=== PATIENT | male | born 1995 | race Caucasian/White ===

== ENCOUNTER 2017-10-10 21:28 | Emergency (ER) | payer BC ==
--- NOTE | 2017-10-10 21:47 | Emergency Department Record ---
History of Present Illness - General Chief Complaint: Depression Stated Complaint: DEPRESSION Time Seen by Provider: 10/10/17 21:31 Source: Patient Mode of Arrival: Ambulatory Limitations: No limitations Travel/Exposure to [place] Within 21 Days of Symptoms: No - History of Present Illness Initial Comments: 22 yo male presents to ED for evaluation of depression symptoms x 1 month. Patient denies a specific initiating event but does report that he quir his job 2 weeks ago which resulted in worsening depression symptoms. Patient denies previous history of depression, and denies any SI/HI on examination with his mother present at the bedside. Patient does report that he has a PCP who he has not contacted regarding his symptoms, and he reports that he is not interested in therapy at this time. MD Complaint: Feels depressed Onset/Timin -: Month(s) Associated Psychiatric Symptoms: Depression, Racing thoughts History of same: No Quality: Constant Improves With: None Worsens With: None Context: Unsure Associated Symptoms: Insomnia Treatments Prior to Arrival: None - [place] Coma Scale Eye Response: (4) Open spontaneously Motor Response: (6) Obeys commands Verbal Response: (5) Oriented [place] Total: 15 - Related Data Allergies Allergy/AdvReac Type Severity Reaction Status Date / Time amoxicillin [Amoxicillin] Allergy Unknown SWELLING Unverified 10/06/15 08:33 (GENERAL) Review of Systems Constitutional: Denies: Chills, Fever, Malaise, Night sweats Eyes: Denies: Eye discharge, Eye pain ENT: Denies: Congestion, Ear pain, Epistaxis Respiratory: Denies: Cough, Dyspnea Cardiovascular: Denies: Chest pain, Dyspnea on exertion Endocrine: Denies: Fatigue, Heat or cold intolerance Gastrointestinal: Denies: Abdominal pain, Nausea, Vomiting Genitourinary: Denies: Incontinence, Retention Musculoskeletal: Denies: Arthralgia, Back pain, Gout, Joint swelling Skin: Denies: Bruising, Change in color Neurological: Denies: Abnormal gait, Confusion, Headache, Seizure Psychiatric: Reports: Depression. Denies: Anxiety, Homicidal thoughts, Suicidal thoughts Hematological/Lymphatic: Denies: Anemia, Blood Clots Past Medical History - SOCIAL HISTORY Smoking Status: Never smoker Alcohol Use: None Drug Use: None - RESPIRATORY Hx Respiratory Disorders: No - CARDIOVASCULAR Hx Cardio Disorders: No - NEURO Hx Neuro Disorders: No - GI Hx GI Disorders: No - Hx Genitourinary Disorders: No - ENDOCRINE Hx Endocrine Disorders: No - MUSCULOSKELETAL Hx Musculoskeletal Disorders: No - PSYCH Hx Psych Problems: No - HEMATOLOGY/ONCOLOGY Hx Hematology/Oncology Disorders: No Family Medical History Any Significant Family History?: Yes Hx Alcohol Use: Brother/Sister Hx Diabetes: Mother *Diabetes Comment: Aunt Hx Heart Disease: Father, Grandparents Physical Exam - General General Appearance: Alert, Oriented x3, Cooperative, Moderate distress Limitations: No limitations - Head Head exam: Atraumatic, Normocephalic, Normal inspection Head exam detail: negative: Abrasion, Contusion, Adam's sign, General tenderness, Hematoma, Laceration - Eye Eye exam: Conjunctival injection. negative: Periorbital swelling, Periorbital tenderness, Scleral icterus - ENT Ear exam: negative: Auricular hematoma, Auricular trauma Nasal Exam: negative: Active bleeding, Discharge, Dried blood, Foreign body Mouth exam: negative: Drooling, Laceration, Muffled voice, Tongue elevation - Neck Neck exam: Normal inspection. negative: Meningismus, Tenderness - Respiratory Respiratory exam: Normal lung sounds bilaterally. negative: Rales, Respiratory distress, Rhonchi, Stridor - Cardiovascular Cardiovascular Exam: Regular rate, Normal rhythm, Normal heart sounds - GI/Abdominal GI/Abdominal exam: Soft. negative: Rebound, Rigid, Tenderness - Rectal Rectal exam: Deferred - exam: Deferred - Extremities Extremities exam: Normal inspection. negative: Calf tenderness, Pedal edema, Tenderness - Back Back exam: Denies: CVA tenderness (R), CVA tenderness (L) - Neurological Neurological exam: Alert, Normal gait, Oriented X3 - Psychiatric Psychiatric exam: Normal affect, Normal mood - Skin Skin exam: Normal color. negative: Abrasion Type of lesion: negative: abrasion Course Vital Signs 10/10/17 21:33 Temperature 98.7 F Pulse Rate [ 76 Pulse Ox Probe] Respiratory 20 Rate Blood Pressure 144/99 [Left Arm] Pulse Ox 98 - Reevaluation(s) Reevaluation #1: 10/10/17 21:51 Patient was seen and examined, reports symptoms of depression for 1 month. Patient and denies SI/HI, reports that he has been having intermittent visual hallucinations due to lack of sleep per patient. I did explain the limitations of initiating medication for depression as frequent monitoring is required. Patient does have a PCP that he was instructed to fall in the morning for a follow-up appointment. Patient is alert , oriented, and answers all questions appropriately on my examination. There is no clinical evidence for acute sacha on examination or an ability to care for himself. Patient and his family member verbalize understanding of all instructions. Patient appears stable for discharge at this time. I did discuss placing a consult for behavioral health here at [facility], patient declined stating that he was not interested in therapy at this time. Disposition Disposition: Discharge Clinical Impression: Depression (emotion) Qualifiers: Depression Type: unspecified Qualified Code(s): F32.9 - Major depressive disorder, single episode, unspecified Disposition: Home, Self-Care Condition: (2) Stable Instructions: Depression (ED) Additional Instructions: Return to ED if your symptoms worsen or if you have any concerns. Call Dr. Estrada's office in the morning for an appointment in 1-3 days as directed. Forms: Patient Portal Access Time of Disposition: 21:47 Quality - Quality Measures Quality Measures: N/A - Blood Pressure Screening Does Patient Have Any of the Following: No Blood Pressure Classification: Hypertensive Reading Systolic Measurement: 144 Diastolic Measurement: 99 Screening for High Blood Pressure: < First Hypertensive BP, F/U Documented > [ G8950] First Hypertensive Follow-up Interventions: Referral to alternative/primary care provider.
== END 2017-10-10 21:53 | disposition home or self-care (01) ==
LOC: ER 21:28
DX: F32.9 Major depressive disorder, single episode, unspecified (principal)
CPT/HCPCS: 99282

== ENCOUNTER 2018-06-03 20:34 | Emergency (ER) | payer BC ==
[2018-06-03] MEDS ORDERED: METHYLPREDNISOLONE PF 125MG/VIAL IM ONE (20:53)
[2018-06-03] MEDS ORDERED: DIPHENHYDRAMINE HCL 50 MG/ML VIAL IM ONE (20:53)
--- NOTE | 2018-06-03 20:59 | Emergency Department Record ---
History of Present Illness - General Chief complaint: Rash Stated complaint: RASH ON BACK,NOT FEELING HIMSELF Time Seen by Provider: 06/03/18 20:48 Source: Patient Mode of Arrival: Ambulatory Limitations: No limitations - History of Present Illness Initial comments: pt laid on garage floor working on a car when he broke out in a rash on his back that itches. pt feels like he has something in his throat MD complaint: Insect bite/sting, Other (hives) Onset/Timin -: Hour(s) Hx Tetanus Toxoid Vaccination: Yes Year of Tetanus Vaccination: unknown Location: Back Associated symptoms: Itching Treatments Prior to Arrival: None - Related Data Home Medications Medication Instructions Recorded Confirmed Last Taken No Home Med [NO HOME MEDS] 06/03/18 06/03/18 Unknown Allergies Allergy/AdvReac Type Severity Reaction Status Date / Time amoxicillin [Amoxicillin] Allergy Unknown SWELLING Verified 06/03/18 20:38 (GENERAL) Travel Screening - Travel/Exposure Within Last 30 Days Have you traveled within the last 30 days?: No - Travel Symptoms Symptom Screening: None Review of Systems Reviewed: No additional complaints except as noted below Constitutional: Reports: As per HPI. Denies: Chills, Fever, Malaise, Night sweats, Weakness, Weight change Eyes: Reports: As per HPI. Denies: Eye discharge, Eye pain, Photophobia, Vision change ENT: Reports: As per HPI. Denies: Congestion, Dental pain, Ear pain, Epistaxis , Hearing loss, Throat pain Respiratory: Reports: As per HPI. Denies: Cough, Dyspnea, Hemoptysis, Stridor, Wheezes Cardiovascular: Reports: As per HPI. Denies: Arrhythmia, Chest pain, Dyspnea on exertion, Edema, Murmurs, Orthopnea, Palpitations, Paroxysmal nocturnal dyspnea, Rheumatic Fever, Syncope Endocrine: Reports: As per HPI. Denies: Fatigue, Heat or cold intolerance, Polydipsia, Polyuria Gastrointestinal: Reports: As per HPI. Denies: Abdominal pain, Constipation, Diarrhea, Hematemesis, Hematochezia, Melena, Nausea, Vomiting Genitourinary: Reports: As per HPI. Denies: Dysuria, Frequency, Hematuria, Incontinence, Retention, Testicular pain, Testicular mass, Urgency Musculoskeletal: Reports: As per HPI. Denies: Arthralgia, Back pain, Gout, Joint swelling, Myalgia, Neck pain Skin: Reports: As per HPI. Denies: Bruising, Change in color, Change in hair/ nails, Lesions, Pruritus, Rash Neurological: Reports: As per HPI. Denies: Abnormal gait, Confusion, Headache, Numbness, Paresthesias, Seizure, Tingling, Tremors, Vertigo, Weakness Psychiatric: Reports: As per HPI. Denies: Anxiety, Auditory hallucinations, Depression, Homicidal thoughts, Suicidal thoughts, Visual hallucinations Hematological/Lymphatic: Reports: As per HPI. Denies: Anemia, Blood Clots, Easy bleeding, Easy bruising, Swollen glands Past Medical History - SOCIAL HISTORY Smoking Status: Never smoker - RESPIRATORY Hx Respiratory Disorders: No - CARDIOVASCULAR Hx Cardio Disorders: No - NEURO Hx Neuro Disorders: No - GI Hx GI Disorders: No - Hx Genitourinary Disorders: No - ENDOCRINE Hx Endocrine Disorders: No - MUSCULOSKELETAL Hx Musculoskeletal Disorders: No - PSYCH Hx Psych Problems: No - HEMATOLOGY/ONCOLOGY Hx Hematology/Oncology Disorders: No Family Medical History Any Significant Family History?: Yes Hx Alcohol Use: Brother/Sister Hx Diabetes: Mother *Diabetes Comment: Aunt Hx Heart Disease: Father, Grandparents Physical Exam - General General Appearance: Alert, Oriented x3, Cooperative, Mild distress - Head Head exam: Normal inspection - Eye Eye exam: Normal appearance, PERRL, EOMI Pupils: Normal accommodation - ENT ENT exam: Normal exam, Mucous membranes moist, Normal external ear exam, Normal orophraynx Ear exam: Normal external inspection. negative: External canal tenderness Nasal Exam: Normal inspection. negative: Discharge, Sinus tenderness Mouth exam: Normal external inspection, Tongue normal Teeth exam: Normal inspection. negative: Dental caries Throat exam: Normal inspection, Other (no swelling). negative: Tonsillar erythema, Tonsillar exudate - Neck Neck exam: Normal inspection, Full ROM. negative: Tenderness - Respiratory Respiratory exam: Normal lung sounds bilaterally. negative: Respiratory distress - Cardiovascular Cardiovascular Exam: Regular rate, Normal rhythm, Normal heart sounds - GI/Abdominal GI/Abdominal exam: Soft, Normal bowel sounds. negative: Tenderness - Rectal Rectal exam: Deferred - exam: Deferred - Extremities Extremities exam: Normal inspection, Full ROM, Normal capillary refill. negative: Tenderness - Back Back exam: Reports: Normal inspection, Full ROM. Denies: Muscle spasm, Rash noted, Tenderness - Neurological Neurological exam: Alert, CN II-XII intact, Normal gait, Oriented X3 - Psychiatric Psychiatric exam: Normal affect, Normal mood - Skin Skin exam: Dry, Erythema, Intact, Normal color, Rash, Urticaria, Warm Type of lesion: Bite/sting Description of rash: Urticarial Course Vital Signs 06/03/18 20:38 Temperature 98.5 F Pulse Rate [ 74 Pulse Ox Probe] Respiratory 20 Rate Blood Pressure 158/96 [Left Arm] Pulse Ox 98 Disposition Disposition: Discharge Clinical Impression: Urticaria Insect bite Qualifiers: Encounter type: initial encounter Site of insect bite: thoracic wall Site of insect bite of thoracic wall: back wall Laterality: unspecified laterality Qualified Code(s): S20.469A - Insect bite (nonvenomous) of unspecified back wall of thorax, initial encounter; W57.XXXA - Bitten or stung by nonvenomous insect and other nonvenomous arthropods, initial encounter Disposition: Home, Self-Care Condition: (1) Good Instructions: Urticaria (ED), Insect Bite or Sting (ED) Additional Instructions: follow up with family docJosé Luis ray every 6 hours as needed. Forms: Patient Portal Access Quality - Quality Measures Quality Measures: N/A - Blood Pressure Screening Does Patient Have Any of the Following: No Blood Pressure Classification: Pre-Hypertensive BP Reading Systolic Measurement: 153 Diastolic Measurement: 88 Screening for High Blood Pressure: < Pre-Hypertensive BP, F/U Documented > [ G8950] Pre-Hypertensive Follow-up Interventions: Follow-up with rescreen every year.
== END 2018-06-03 21:53 | disposition home or self-care (01) ==
LOC: ER 20:34
DX: S20.469A Insect bite (nonvenomous) of unspecified back wall of thorax, initial encounter (principal); L50.9 Urticaria, unspecified; W57.XXXA Bitten or stung by nonvenomous insect and other nonvenomous arthropods, initial encounter
CPT/HCPCS: 96372; 99283; J1200; J2930